=== PATIENT | male | born 1960 | race Caucasian/White ===

== ENCOUNTER 2017-09-17 09:24 | Day surgery (SDC) | payer MEDICAID, OTHER ==
[~2017-09-17] VITALS: Ht 165.1 cm; Wt 81.6 kg
[2017-09-17 12:15] LABS: BASOPHILS % 0.7 % (0.0-2.0); EOSINOPHILS % 2.7 % (0.0-5.0); HEMATOCRIT. 38.7 % (42.0-52.0); HEMOGLOBIN. 13.2 g/dL (14.0-18.0); LYMPHOCYTES % 29.6 % (20.0-50.0); MEAN CORPUSCULAR HEMOGLOBIN 27.2 pg (28.0-32.0); MEAN CORPUSCULAR VOLUME 79.9 fL (80.0-94.0); MEAN PLATELET VOLUME 8.9 fl (7.4-10.4); MONOCYTES % 6.1 % (2.0-8.0); NEUTROPHILS % 60.9 % (40.0-76.0); PLATELET 212 x1000/uL (130-400); RED BLOOD CELL COUNT 4.85 mill/uL (4.7-6.1); RED CELL DISTRIBUTION WIDTH 13.8 % (11.6-14.6)
[2017-09-17 12:21] LABS: CHLORIDE 104 mEq/L (98-107)
[2017-09-17 12:26] LABS: CARBON DIOXIDE 30 mEq/L (21-32)
[2017-09-17] MEDS ORDERED: AMLO5TAB88 PO (12:54)
[2017-09-17] MEDS ORDERED: ATOR-2 PO (12:54)
[2017-09-17] MEDS ORDERED: ASPI-1159 PO (12:54)
[2017-09-17] MEDS ORDERED: METF500T4 PO (12:54)
[2017-09-17] MEDS ORDERED: LISI-604 PO (12:54)
[2017-09-17] MEDS ORDERED: RANO500T3 PO (12:54)
[2017-09-17] MEDS ORDERED: ISOS20TA57 PO (12:54)
[2017-09-17] MEDS ORDERED: CLOP75TA33 PO (12:54)
[2017-09-17] MEDS ORDERED: NITR0.4T49 SL (12:54)
[2017-09-17] MEDS ORDERED: LIDOCAINE HCL 1% 20ML VIAL (Pyxis) INJ ONE (14:55)
[2017-09-17] MEDS ORDERED: IOHEXOL-300 100 ML BOTTLE ONE (14:55)
[2017-09-17] MEDS ORDERED: MIDAZOLAM HCL 2 MG/2 ML VIAL ONE (15:01)
[2017-09-17] MEDS ORDERED: FENTANYL CITRATE/PF 50MCG/ML 2ML VIAL ONE (15:02)
== END 2017-09-17 18:09 | disposition home or self-care (01) ==
LOC: CCL 09:24
PROVIDERS: ATTEND Specialist
DX: I25.10 Atherosclerotic heart disease of native coronary artery without angina pectoris (principal); I10 Essential (primary) hypertension; E11.9 Type 2 diabetes mellitus without complications
CPT/HCPCS: 36415; 80048; 82962; 85025; 93458; 99152; C1760; C1769; C1887; C1893; J1644; J2250; J3010; J3490; Q9967